=== PATIENT | male | born 1985 | race Caucasian/White ===

== ENCOUNTER 2023-05-13 08:00 | Outpatient (CLI) | payer MEDICAID ==
--- NOTE | 2023-05-13 15:28 | XRAY Report ---
PROCEDURE: Knee 2 View LT INDICATIONS: left knee pain TECHNIQUE: 2 views of the left knee(s) were acquired. COMPARISON: None. FINDINGS: Bones: No fractures or dislocations. No suspicious bony lesions. Prior bilateral ACR repairs. Alfonso ateral, bicompartmental joint space narrowing with associated osteophytosis. Soft tissues: No knee joint effusion. No suspicious soft tissue calcifications or masses. 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 Kellgren-Iraj scale of osteoarthritis: 2. Reviewed by: Rene Chou on 05/13/2023 3:27 PM PDT Approved by: Rene Chou on 05/13/2023 3:27 PM PDT Station ID: [id number]
== END 2023-05-13 23:59 | disposition home or self-care (01) ==
LOC: DI.WOS 08:00
PROVIDERS: ATTEND Physician Assistant Surgical
DX: M17.12 Unilateral primary osteoarthritis, left knee (principal)

== ENCOUNTER 2023-12-03 08:00 | Outpatient (CLI) | payer MEDICAID ==
[2023-12-03 18:33] LABS: BILIRUBIN,URINE NEGATIVE (NEGATIVE); GLUCOSE, URINE (UA) NEGATIVE (NEGATIVE); KETONES,URINE (UA) NEGATIVE (NEGATIVE); LEUKOCYTE ESTERASE, URINE NEGATIVE (NEGATIVE); NITRITE,URINE NEGATIVE (NEGATIVE); OCCULT BLOOD,URINE NEGATIVE (NEGATIVE); PROTEIN,URINE NEGATIVE (NEGATIVE); UROBILINOGEN,URINE 0.2 (NORMAL) E.U./dL (NORMAL)
[2023-12-03 18:35] LABS: CLARITY,URINE CLEAR (CLEAR)
[2023-12-03 18:40] LABS: BACTERIA,URINE None Seen /HPF (None Seen); RBC,URINE None Seen /HPF (0-5); SQUAMOUS EPITHELIAL CELL,UR NONE SEEN (<= Few); WBC,URINE 0-3 /HPF (0-3)
== END 2023-12-03 23:59 | disposition home or self-care (01) ==
LOC: LAB.N 08:00
PROVIDERS: ATTEND Nurse Practitioner Family
DX: M94.0 Chondrocostal junction syndrome [Tietze] (principal); R35.0 Frequency of micturition
CPT/HCPCS: 81001; 87086

== ENCOUNTER 2023-12-16 08:15 | Outpatient (CLI) | payer MEDICAID ==
--- NOTE | 2023-12-16 16:10 | XRAY Report ---
PROCEDURE: Thoracic Spine 2V INDICATIONS: BACK PAIN <3 MONTHS TECHNIQUE: 2 views of the thoracic spine were acquired. COMPARISON: None. FINDINGS: Bones: No fractures or dislocations. No suspicious bony lesions. 12 pairs of ribs are noted, and a ppear intact where visualized. Soft tissues: No paravertebral stripe thickening. IMPRESSION: No acute bony abnormality. No significant degenerative change. Reviewed by: Seema Bojorquez MD on 12/16/2023 4:08 PM PDT Approved by: Seema Bojorquez MD on 12/16/2023 4:08 PM PDT Station ID: [id number]
== END 2023-12-16 08:30 | disposition home or self-care (01) ==
LOC: DI.N 08:15
PROVIDERS: ATTEND Physician Assistant Medical
DX: M54.6 Pain in thoracic spine (principal)

== ENCOUNTER 2024-02-18 07:48 | Outpatient (CLI) | payer MEDICAID ==
--- NOTE | 2024-02-18 15:33 | XRAY Report ---
PROCEDURE: Knee 3V LT INDICATIONS: PAIN IN LEFT KNEE TECHNIQUE: 3 views of the knee(s) were acquired. COMPARISON: 05/13/2023. FINDINGS: Bones: There is prior ACL reconstruction. Left knee alignment is anatomic. No abnormal anterior tibi al translation. No fractures or dislocations. No suspicious bony lesions. Soft tissues: No significant knee joint effusion. No suspicious soft tissue calcifications or masses . IMPRESSION: Prior ACL repair with anatomic left knee alignment. No fracture or dislocation. No significant joint effusion. Reviewed by: Dixon Shook MD on 02/18/2024 3:32 PM PDT Approved by: Dixon Shook MD on 02/18/2024 3:32 PM PDT Station ID: [id number]
== END 2024-02-18 23:59 | disposition home or self-care (01) ==
LOC: DI.N 07:48
PROVIDERS: ATTEND Physician Assistant
DX: M25.562 Pain in left knee (principal)